=== PATIENT | female | born 1955 | race African-American/Black ===

== ENCOUNTER → 2019-08-28 | Outpatient (CLI) | payer MEDICARE ==
[~2019-08-28] MED LIST: IOHEXOL 240 MG/ML 50ML VIAL. PO ONE; IOHEXOL 300 MG/ML 100ML VIAL. IV ONE
--- NOTE | 2019-08-28 16:37 | RAD ---
EXAM: 1. CT OF THE CHEST, ABDOMEN AND PELVIS WITH CONTRAST. 2. BONE SCINTIGRAPHY. HISTORY: Right breast cancer. TECHNIQUE: Computed tomography of the chest, abdomen and pelvis was performed after the intravenous administration of iodinated contrast. 25.5 mCi technetium 99m MDP was administered intravenously. Scintigraphic images of the entire body were obtained in anterior and posterior projections after a delay. COMPARISON: None. FINDINGS: Bone windows reveal sclerotic lesions within the right acetabulum, left femoral head, right femoral neck, both iliac wings, the sternum, and multiple lower thoracic and lumbar vertebral bodies. There is a moderate compression deformity at L1. There is a mild compression deformity at T10. Scintigraphically, the larger of these lesions correspond with sites of intense uptake typical of metastatic disease. Another scintigraphic side of uptake is noted within the lower cervical spine on the left. The left body of the mandible and the calvarial vertex may also be involved. There is extensive soft tissue contamination within the left arm, lowering delivered dose and scintigraphic sensitivity. Uptake at the right greater than left carpus in both knees is likely degenerative. There is a large open wound along the superior aspect of the right breast. Surrounding soft tissue density is consistent with an ulcerated tumor or recurrence after resection. The entire involved region spans approximately 10 cm across and 3 cm in thickness. This soft tissue process is inseparable from the pectoralis muscle without definitive direct invasion. A separate mass like region in the right inferior breast measures 2.9 x 2.2 cm. Multiple additional masses are scattered throughout the left upper breast and measure up to 2.7 x 1.9 cm just deep to the skin at the 12:00 position. Small but hyperenhancing left axillary lymph nodes are likely involved. The largest measures 11 x 9 mm. There are no clearly pathologic appearing right axillary lymph nodes. Right axillary dissection changes are suspected. There are no enlarged internal mammary lymph nodes. A 2.3 x 2.0 cm right hilar node is likely involved. There is no pleural or pericardial effusion. The heart is not enlarged. Multiple bilateral pulmonary nodules are consistent with metastatic disease. The largest on the right just posterior to the major fissure on image 36 measures 2.0 x 1.4 cm. The largest in the left lower lobe just lateral to the pericardium measures 1.6 x 0.9 cm. Multiple hypoattenuating hepatic lesions are consistent with metastatic disease. One in segment 2/3 measures 5.0 x 4.2 cm transaxially. Another in segment 6 measures 4.8 x 3.4 cm. Multiple smaller lesions are present elsewhere. There is a small cyst in the left kidney. The pancreas, adrenal glands, and gallbladder are unremarkable. There is a calcified granuloma in the spleen. There are no pathologically enlarged abdominal or pelvic lymph nodes. Multiple soft tissue density foci within the lower anterior abdominal wall likely reflect subcutaneous injections. There is no small bowel obstruction. The appendix is not inflamed. IMPRESSION: 1. A 10 cm open wound along the right breast superiorly may reflect an ulcerated mass or tumor recurrence at resection site. Also additional sites of disease are noted inferiorly in the right breast and scattered throughout the left upper breast. 2. Small left axillary lymph nodes are likely involved. 3. Extensive pulmonary and hepatic metastatic disease. 4. Multiple osseous metastases as detailed above. *One or more of the following individualized dose reduction techniques were utilized for this examination: 1. Automated exposure control. 2. Adjustment of the mA and/or kV according to patient size. 3. Use of iterative reconstruction technique. Electronically signed by: Yandy Kuhn MD (08/28/2019 4:35 PM) [facility] [place]
== END | disposition home or self-care (01) ==
LOC: NM 08:24
PROVIDERS: ATTEND Internal Medicine Hematology & Oncology
DX: C50.911 Malignant neoplasm of unspecified site of right female breast (principal); C78.7 Secondary malignant neoplasm of liver and intrahepatic bile duct; C78.00 Secondary malignant neoplasm of unspecified lung; C79.51 Secondary malignant neoplasm of bone; R91.8 Other nonspecific abnormal finding of lung field; K76.9 Liver disease, unspecified; N28.1 Cyst of kidney, acquired; Z17.0 Estrogen receptor positive status [ER+]
CPT/HCPCS: 71260; 74177; 78306; A9503; Q9966; Q9967